=== PATIENT | female | born 2005 | race Two or more races ===

== ENCOUNTER 2023-09-20 12:49 | Emergency (ER) | payer MEDICAID, OTHER ==
[~2023-09-20] VITALS: Ht 162.6 cm; Wt 87.1 kg
[2023-09-20 14:47] VITALS: BP 123/78; PULSE 99; RESP 16; TEMP 98.4; O2SAT 100
[2023-09-20] MEDS ORDERED: ERY05OO OP (15:10)
== END 2023-09-20 15:10 | disposition home or self-care (01) ==
LOC: ER 12:49
DX: H10.89 Other conjunctivitis (principal); B96.89 Other specified bacterial agents as the cause of diseases classified elsewhere; Z79.2 Long term (current) use of antibiotics; Z88.8 Allergy status to other drugs, medicaments and biological substances

== ENCOUNTER 2023-10-22 16:19 | Emergency (ER) | payer MEDICAID ==
[~2023-10-22] VITALS: Ht 162.6 cm; Wt 89.5 kg
[~2023-10-22 16:19] MED LIST: ERY05OO OP
[2023-10-22 17:25] LABS: Basophils # (auto) 0.1 10 ^3/uL (0-0.2); Basophils % (auto) 0.4 % (0.0-2.0); Eosinophils # (auto) 0.3 10 ^3/uL (0-0.8); Eosinophils % (auto) 1.9 % (0.0-7.0); Hematocrit 37.6 % (36.0-46.0); Hemoglobin 12.6 g/dL (12.2-16.2); Lymphocytes # (auto) 2.7 10 ^3/uL (0.4-5.4); Lymphocytes % (auto) 16.7 % (10.0-50.0); Mean Corpuscular Hemoglobin 31.5 pg (28.0-32.0); Mean Corpuscular Hgb Conc. 33.4 g/dL (32.0-36.0); Mean Corpuscular Volume 94.2 fL (80.0-100.0); Monocytes # (auto) 0.9 10 ^3/uL (0-1.3); Monocytes % (auto) 5.4 % (0.0-12.0); Neutrophils # (auto) 12.4 10 ^3/uL (1.6-8.6); Neutrophils % (auto) 75.6 % (37.0-80.0); Red Cell Distribution Width 12.9 % (11.8-14.3); White Blood Cell 16.4 10^3/uL (4.4-10.8)
[2023-10-22 17:44] LABS: Alanine Aminotransferase 13 U/L (7-40); Albumin 4.2 g/dL (3.2-4.8); Alkaline Phosphatase 48 U/L (46-116); Anion Gap 8 (5-15); Aspartate Aminotransferase 15 U/L (13-40); Bilirubin, Total 0.4 mg/dL (0.2-1.0); Blood Urea Nitrogen 6 mg/dL (9-23); Calcium 9.5 mg/dL (8.5-10.1); Carbon Dioxide 23 mmol/L (20-30); Chloride 108 mmol/L (98-107); Glucose 100 mg/dL (74-106); Potassium 3.7 mmol/L (3.5-5.1); Sodium 139 mmol/L (136-145); Total Protein 6.9 g/dL (5.7-8.2)
[2023-10-22 18:17] LABS: Urine Bacteria NONE SEEN /hpf (None Seen); Urine Blood 1+ /uL (Negative); Urine Clarity HAZY (Clear); Urine Color Yellow (Yellow); Urine Protein, UAD Negative (Negative); Urine Specific Gravity 1.018 (1.001-1.035); Urine Urobilinogen Normal (Negative); Urine WBC 7 /hpf (0 - 5); Urine pH 6.5 (5.0-8.0)
[2023-10-22] MEDS ORDERED: NITROFURANTOIN 100 mg CAP PO ONE (20:15)
[2023-10-22] MEDS ORDERED: ACET500T58 PO (20:19)
[2023-10-22] MEDS ORDERED: NITR-87 PO (20:19)
[2023-10-22 22:16] VITALS: BP 127/75; PULSE 87; RESP 18; TEMP 97.6; O2SAT 100
== END 2023-10-22 22:22 | disposition home or self-care (01) ==
LOC: ER 16:19
DX: O20.8 Other hemorrhage in early pregnancy (principal); R10.2 Pelvic and perineal pain; O23.41 Unspecified infection of urinary tract in pregnancy, first trimester; N39.0 Urinary tract infection, site not specified; Z3A.10 10 weeks gestation of pregnancy
CPT/HCPCS: 36415; 76801; 80053; 81001; 84702; 85025

== ENCOUNTER 2024-06-21 16:34 | Emergency (ER) | payer MEDICAID, OTHER ==
[~2024-06-21] VITALS: Ht 162.6 cm; Wt 95.0 kg
[~2024-06-21 16:34] MED LIST changes: +ACET500T58 PO; +NITR-87 PO
[2024-06-21 18:32] VITALS: BP 151/93; PULSE 78; RESP 18; TEMP 98.3; O2SAT 100
[2024-06-21] MEDS ORDERED: AMOX875T4 PO (19:06)
[2024-06-21] MEDS ORDERED: IBUP-1456 PO (19:06)
[2024-06-21] MEDS: TETANUS-DIPTH-ACEL PERTUSSIS 0.5ML SYR Tdap IM ONE (19:19)
[2024-06-21] MEDS: KETOROLAC TROMETH 60MG/2ML VIAL IM ONE (19:21)
[2024-06-21] MEDS: cefTRIAXone SOD 1,000 MG VL IM ONE (19:21)
[2024-06-21] MEDS ORDERED: NAP500T PO (20:49)
== END 2024-06-21 21:03 | disposition home or self-care (01) ==
LOC: ER 16:34
DX: S51.812A Laceration without foreign body of left forearm, initial encounter (principal); Z88.6 Allergy status to analgesic agent; W54.0XXA Bitten by dog, initial encounter; Y93.89 Activity, other specified; Y92.69 Other specified industrial and construction area as the place of occurrence of the external cause; Y99.8 Other external cause status
CPT/HCPCS: 12002; 73090; 90471; 90715; 96372; 99284; J0696; J1885